=== PATIENT | female | born 1960 | race Caucasian/White ===

== ENCOUNTER 2016-03-28 11:37 | Emergency (ER) | payer MEDICARE ==
[~2016-03-28] VITALS: Ht 175.3 cm; Wt 63.6 kg
--- NOTE | 2016-03-28 11:40 | ED.REPORT ---
HPI-General Illness Date of Service Mar 28, 2016 ED Provider: Dr. Eli Washington 56 year old female with a history of chronic spasticity who presents to the ED via EMS due to severe muscle spasms after an injection of Toradol while at physical therapy just [employer]. Pt reports pain to arms, back and legs secondary to the spasms. Pt has been using THC for pain and symptoms. She has used Lorazepam previously for relief of symptoms. Nursing Notes Stated Complaint: COMBATIVE Nursing Notes Reviewed: Yes Allergies: Coded Allergies: codeine (Verified Allergy, Severe, itchiness, 03/28/16) Scheduled PRN Naproxen (Naprosyn) 500 Mg Tablet 60 MG PO BID PRN PRN For Pain General Time Seen by MD: 11:39 Chief Complaint Other (Muscle spasm) Hx Obtained From: Patient, EMS Arrived By: Ambulance Sudden in Onset?: Yes Onset Occurred: 31 - 45 minutes ago Symptom Duration: Since onset Location: : Arm left: Arm right: Back: Leg left: Leg right Quality: Painful Severity: Current: Moderate Associated with: Denies: Fever, Shortness of breath Similar Sx Previous: Yes Past Medical History Past Medical History Muscle spasticity Seizures Past Surgical History Decompression of spinal cord (2011) Smoking History Former Smoker Social History Alcohol Use: Denies alcohol use Drug Use: THC Ambulatory Status Independent Review of Systems Full Review of Systems Constitutional: Denies: Fever Respiratory: Denies: Shortness of breath Cardiovascular: Denies: Chest pain GI: Denies: Diarrhea, Vomiting Musculoskeletal: Reports: Back pain, Extremity pain Neurologic: Reports: Shaking Complete sys rev & neg: except as marked. Physical Exam Vital Signs Vital Signs Date Time Temp Pulse Resp B/P Pulse Ox O2 Delivery O2 Flow Rate FiO2 03/28/16 12:47 97 18 160/90 98 Room Air 03/28/16 12:25 18 160/90 98 Room Air 03/28/16 11:42 97 20 97 Room Air 03/28/16 11:42 97 20 146/117 97 Room Air Initial VS: Reviewed General/Constitutional: Awake, Alert Head / Eyes: Atraumatic, Normocephalic, PERRL Neck: Atraumatic, Full range of motion Respiratory / Chest: Breath sounds NL, Breath sounds = bilat, No respiratory distress, No rales, No rhonchi, No wheezing Cardiovascular: Heart rate NL, Regular rhythm, Heart sounds NL, Cap refill not delayed, Peripheral circulation NL Skin: Warm, Dry Neurologic: Oriented X3, Speech NL Severe total body spasms Psychiatric: Affect NL, Mood NL Re-Eval/Medical Decision Time of Eval: 12:12 Re-Evaluation/Progress Note: Symptoms have resolved. Pt is now up and walking around the room. Discussed pain management, discharge and follow up. All questions addressed. Counseled Regarding: Diagnosis, Need for follow-up, When/why to return to ED Discharge & Departure Primary Impression: Muscle spasticity Disposition: Home Discharge Condition All VS Reviewed: Yes Condition: Stable Additional Instructions: It sounds like had a difficult 5 years in dealing with the spasticity. You have Valium, Ativan, and tizanidine also help with spasticity. Adding narcotics to this mixture is not a safe option for you. Using daily Naprosyn may be beneficial and is worth trying. I would recommend taking it morning and night for a full week and then reassessing your overall pain level. A prescription has been sent to [facility] electronically for you today. You have mentioned that using marijuana has been somewhat helpful. I would encourage you to use the highest CBD content with the lowest THC content marijuana that you are able to find. It may also help if you have edible candies , high in CBD, on hand to eat to help with the severe unexpected spasms. You have mentioned you are interested in looking for new physicians. Please try internal medicine or family practice at the [facility] as well as the [facility] neurology division. Referrals: Katelyn Jose MD [facility] Residency Clinic Scribe Attestation Portions of this note were transcribed by Katharina Gracia. I, (Dr. Washington) personally performed the history, physical exam and medical decision-making; I reviewed and confirmed the accuracy of the information in the transcribed note. Signed by: Katharina Gracia. Scribe, 03/28/2016, 1255 copies to: Katelyn Jose MD; [facility] Residency Clinic Eli Washington MD Mar 28, 2016 11:40 Katharina Gracia Mar 28, 2016 11:49
[2016-03-28 11:42] VITALS: BP 146/117; PULSE 97; RESP 20; O2SAT 97
[2016-03-28] MEDS ORDERED: oxyCODONE-Acetamin 5-325 mg Tablet PO ONE (12:10)
[2016-03-28 12:25] VITALS: BP 160/90; RESP 18; O2SAT 98
[2016-03-28] MEDS ORDERED: NAPR500T PO (12:39)
[2016-03-28 12:47] VITALS: BP 160/90; PULSE 97; RESP 18; O2SAT 98
== END 2016-03-28 12:48 | disposition home or self-care (01) ==
LOC: EDBD 11:37 → SED 11:37
DX: M62.838 Other muscle spasm (principal); T39.8X5A Adverse effect of other nonopioid analgesics and antipyretics, not elsewhere classified, initial encounter; Y93.89 Activity, other specified; Y92.89 Other specified places as the place of occurrence of the external cause; Y99.8 Other external cause status; Z87.891 Personal history of nicotine dependence; Z88.5 Allergy status to narcotic agent
CPT/HCPCS: 96372; 99283; J2060